=== PATIENT | male | born 1950 | race American Indian/Alaskan Native ===

== ENCOUNTER 2017-01-28 13:05 | Outpatient (CLI) | payer MEDICARE, OTHER ==
--- NOTE | 2017-01-28 14:40 | Cat Scan Report ---
CT HEAD WITHOUT CONTRAST INDICATION: Fell and hit head. Supratherapeutic INR. COMPARISON: None similar at this institution. 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 Minimal, benign bilateral basal ganglia calcifications. Otherwise age-appropriate ventricles. Slight periventricular hypodensities. Mild to moderate bifrontal sulcal enlargement with prominent extra-axial CSF spaces measuring approximately 8 mm thickness. No acute infarct, hemorrhage, mass effect or midline shift. Normal posterior fossa with preserved basilar cisterns. Nasal septal deviation. Slight maxillary sinusitis. Mild right sphenoid sinus mucosal thickening with subtle air-fluid level also possible. Clear remainder imaged paranasal sinuses and mastoid air cells. Mild atherosclerotic internal carotid artery calcifications. Symmetric eye globes. Normal calvarium and scalp. Small radiopaque dental filling. Cervical spondylosis. CONCLUSION: No acute CT abnormality with atrophy and possible acute mild right sphenoid sinusitis, as above. Thank you for the opportunity to participate in this patient's care.
== END 2017-01-28 13:06 | disposition home or self-care (01) ==
LOC: CT 13:05
PROVIDERS: ATTEND Hospitalist
DX: S00.93XD Contusion of unspecified part of head, subsequent encounter (principal); D33.0 Benign neoplasm of brain, supratentorial; J34.2 Deviated nasal septum; J32.0 Chronic maxillary sinusitis; I25.10 Atherosclerotic heart disease of native coronary artery without angina pectoris; M47.892 Other spondylosis, cervical region; W19.XXXA Unspecified fall, initial encounter; Y93.89 Activity, other specified; Y92.89 Other specified places as the place of occurrence of the external cause; Y99.8 Other external cause status
CPT/HCPCS: 70450

== ENCOUNTER 2017-04-20 12:56 | Outpatient (CLI) | payer MEDICARE ==
--- NOTE | 2017-04-20 14:45 | Ultrasound Report ---
ULTRASOUND EXTREMITY NONVASCULAR LEFT History: Pain and swelling left lower extremity. Findings: Targeted ultrasound of the left lower extremity was performed at the site of swelling. The images demonstrate nonspecific subcutaneous edema but no evidence for hematoma. Impression: Edema.
== END 2017-04-20 12:57 | disposition home or self-care (01) ==
LOC: US 12:56 → VAS 12:56 → US 12:57
PROVIDERS: ATTEND Hospitalist
DX: M25.572 Pain in left ankle and joints of left foot (principal); I48.91 Unspecified atrial fibrillation; M25.472 Effusion, left ankle; R60.0 Localized edema; Z91.81 History of falling; Z79.01 Long term (current) use of anticoagulants